=== PATIENT | female | born 1955 | race Caucasian/White ===

== ENCOUNTER 2017-07-26 20:58 | Emergency (ER) | payer BC, SELFPAY ==
[2017-07-26 21:00] VITALS: BP 138/87; PULSE 71; RESP 15; TEMP 36.6; BMI 22.1
--- NOTE | 2017-07-26 21:38 | ED.VISSUMM ---
- ER Visit Summary Date of Service: 07/26/17 Chief Complaint: Eye floaters History of Present Illness: The patient is a 62 F who states that 3 days ago she was at work on the computer when she had a sudden explosion of floaters in the right eye. She denies any loss of vision. States the right eye is been somewhat blurry. She wears reading glasses and she had Lasix surgery just over 10 years ago. 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 Physical Examination: aFebrile vital signs are stable Her motions are intact. The cornea appears normal. Conjunctiva and sclera are normal. Anterior chamber is deep and quiet. The eyes were dilated with Cyclogyl and she had a normal funduscopic exam I do not see evidence of retinal detachment. 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 Return if worsening. Impression: 1. Right eye floaters This note was generated with [employer] dictation software. It may contain incorrect words, spelling, and punctuation that were not noted in review of the chart prior to signing ED Disposition - Plan for ED Patient: Disposition: Home or Assisted Living Chief Complaint: Eye Problem Instructions: What Are Flashes and Floaters?, Treating Flashes and Floaters Referrals: [facility] Doctor,Out of [Primary Care Provider] - Additional Instructions: Please call your eye doctor in the morning for a complete eye examination.
[2017-07-26] MEDS: Cyclopentolate 1% 2 ML Bottle 2 DRP RIGHT EYE (22:26)
[2017-07-26 23:07] VITALS: BP 134/62; PULSE 79; RESP 20; O2SAT 96
== END 2017-07-26 23:07 | disposition home or self-care (01) ==
PROVIDERS: Emergency Provider Emergency Medicine
DX: H43.391 Other vitreous opacities, right eye (principal)
CPT/HCPCS: 99283

== ENCOUNTER → 2021-05-07 | Outpatient (CLI) | payer MEDICARE, SELFPAY ==
[2021-05-12 16:20] LABS: HPV Reflexed? NOT INDICATED
== END | disposition home or self-care (01) ==
LOC: LABSPEC 16:30
PROVIDERS: Visit Provider Family Medicine
DX: Z12.4 Encounter for screening for malignant neoplasm of cervix (principal)
CPT/HCPCS: 88175; G0145

== ENCOUNTER → 2021-05-12 12:48 | Outpatient (CLI) | payer MEDICARE, BC, SELFPAY ==
--- NOTE | 2021-05-12 13:01 | BD_ITS ---
STUDY: DUAL ENERGY X-RAY ABSORPTIOMETRY / DXA REASON FOR EXAM: Female, 65 years old. M85.89. Patient is postmenopausal. TECHNIQUE: Bone Mineral Density (BMD) measurements of lumbar spine and bilateral hips were obtained. COMPARISON: None. FINDINGS: Lumbar Spine (L1-L4): g/cm2 (0.852) / T-score (-1.8) / Z-score (0.1) Findings are suggestive of osteopenia with a moderate fracture risk. Left Femur Total: g/cm2 (0.745) / T-score (-1.6) / Z-score (-0.3) Left Femoral Neck: g/cm2 (0.574) / T-score (-2.5) / Z-score (-0.9) Right Femur Total: g/cm2 (0.791) / T-score (-1.2) / Z-score (0.1) Right Femoral Neck: g/cm2 (0.637) / T-score (-1.9) / Z-score (-0.3) BD/Dexa Bone Density Study IMPRESSION: The patient is considered osteopenic as outlined below according to World Jeremie Organization (WHO) criteria with a high fracture risk. Reference Information: The T-score is the number of standard deviations above or below the standard which is normal for young adults at their peak bone mineral density. The World Health Organization (WHO) interprets the T-scores as follows: Above -1 Normal bone density Between -1 and -2.5 Osteopenia Equal to / or below -2.5 Osteoporosis As a practical clinical guideline, osteopenia may be graded as follows: Mild -1 through -1.5 Moderate -1.6 through -2.0 Severe -2.1 through -2.4 The Z-score is the number of standard deviations above or below age-matched controls. A Z-score of less than -1.5 would be considered abnormal. References: 1. NIH Osteoporosis and Related Bone Diseases www osteo.org 2. International Society for Clinical Densitometry www iscd.org 3. National Osteoporosis Foundation www nof.org Electronically Signed: Andre Chavez MD at 14:24 EST , Service support ,
== END ==
PROVIDERS: Visit Provider Family Medicine
DX: M85.80 Other specified disorders of bone density and structure, unspecified site (principal); Z78.0 Asymptomatic menopausal state
CPT/HCPCS: 77080

== ENCOUNTER → 2022-08-04 | Outpatient (CLI) | payer MEDICARE, BC, SELFPAY ==
[2022-08-04 12:34] LABS: Erythrocyte Sedimentation Rate < 1 mm/hr (0-30)
[2022-08-04 12:37] LABS: Absolute Neutrophil Count 3.9 X10^3/uL (2.0-7.7); Basophil# 0.09 X10^3/uL; Basophil% 1.2 % (0-1); Eosinophil# 0.36 X10^3/uL; Eosinophils% 4.7 % (0-5); Hematocrit 44.6 % (37-47); Hemoglobin 14.7 g/dL (12.0-15.0); Lymphocyte % 35.3 % (19-41); Mean Corpuscular Hgb 30.4 pg (27.0-32.0); Mean Corpuscular Volume 92.3 fL (81-99); Mean Platelet Vol. 11.4 fl (6.2-12.0); Monocyte# 0.61 X10^3/uL; NRBC Flagged by Analyzer 0 % (0-5); Neutrophil # 3.86 X10^3/uL (2.7-7.7); Neutrophil % 50.4 % (47-70); Platelet Count 312 K/mm3 (150-450); RBC Distribution Width CV 13.4 % (11.6-14.6); RBC Distribution Width SD 45.2 fl (35.1-43.9); Red Blood Count 4.83 M/mm3 (4.2-5.4); White Blood Count 7.7 K/mm3 (4.4-11.0)
[2022-08-04 13:01] LABS: ALB/GLOB Ratio 1.3 RATIO (0.9-2.4); AST(SGOT) 14 U/L (15-37); Alanine Aminotransfer ALT/SGPT 31 U/L (13-56); Alkaline Phosphatase 77 U/L (45-117); Anion Gap 6 (5-15); BUN 21 mg/dL (7-18); BUN/Creat Ratio 24.3 RATIO (10-20); CRP < 2.90 mg/L (0.0-3.0); Calcium,Total 9.3 mg/dL (8.5-10.1); Chloride 107 mmol/L (98-107); Creatinine, Serum 0.86 mg/dL (0.55-1.02); EST Glomerular Filtration Rate 69 mL/min (>60); Est Glom Filt Rate - Afr Amer 84 mL/min (>60); Globulin 3.1 g/dL (2.2-4.2); Glucose 97 mg/dL (74-106); Potassium 4.4 mmol/L (3.5-5.1); Protein, Total 7.1 g/dL (6.4-8.2); Sodium Level 141 mmol/L (136-145)
[2022-08-05 15:26] LABS: ANTINUCLEAR ANTIBODIES DIRECT Negative (Negative)
== END | disposition home or self-care (01) ==
PROVIDERS: PCP Family Medicine; Visit Provider Family Medicine
DX: R21 Rash and other nonspecific skin eruption (principal); R00.0 Tachycardia, unspecified
CPT/HCPCS: 36415; 80053; 84443; 85025; 85652; 86038; 86140; 86225; 86235

== ENCOUNTER → 2024-07-22 | Outpatient (CLI) | payer MEDICARE, OTHER, SELFPAY ==
[2024-07-22 12:49] LABS: Absolute Lymphocyte Count 1.62 X10^3/uL (0.83-4.51); Absolute Neutrophil Count 3.4 X10^3/uL (2.0-7.7); Basophil# 0.07 X10^3/uL; Basophil% 1.3 % (0-1); Eosinophils% 1.8 % (0-5); Hematocrit 42.3 % (37-47); Hemoglobin 13.6 g/dL (12.0-15.0); Lymphocyte # 1.62 X10^3/ul (0.83-4.51); Mean Corp Hgb Conc 32.2 g/dL (32-36); Mean Corpuscular Hgb 28.9 pg (27.0-32.0); Mean Corpuscular Volume 89.8 fL (81-99); Mean Platelet Vol. 11.9 fl (6.2-12.0); Monocyte# 0.35 X10^3/uL; Monocyte% 6.3 % (0-10); NRBC Flagged by Analyzer 0 % (0-5); Neutrophil # 3.44 X10^3/uL (2.7-7.7); Neutrophil % 61.4 % (47-70); Platelet Count 262 K/mm3 (150-450); RBC Distribution Width CV 12.5 % (11.6-14.6); RBC Distribution Width SD 41.2 fl (35.1-43.9); Red Blood Count 4.71 M/mm3 (4.2-5.4); White Blood Count 5.6 K/mm3 (4.4-11.0)
[2024-07-22 13:24] LABS: Vitamin D,25 Hydroxy 35.6 ng/mL
[2024-07-22 20:23] LABS: ALB/GLOB Ratio 1.2 RATIO (0.9-2.4); AST(SGOT) 16 U/L (15-37); Alanine Aminotransfer ALT/SGPT 30 U/L (13-56); Albumin, Serum 3.8 g/dL (3.2-5.0); Alkaline Phosphatase 81 U/L (45-117); Anion Gap 7 (5-15); BUN 20 mg/dL (7-18); BUN/Creat Ratio 26.7 RATIO (10-20); Calcium,Total 9.7 mg/dL (8.5-10.1); Chloride 108 mmol/L (98-107); Cholesterol 227 mg/dL (200); Creatinine, Serum 0.75 mg/dL (0.55-1.02); EST Glomerular Filtration Rate 81 mL/min (>60); Est Glom Filt Rate - Afr Amer 98 mL/min (>60); Globulin 3.2 g/dL (2.2-4.2); Glucose 99 mg/dL (74-106); High Density Lipoprotein 50 mg/dL; Sodium Level 140 mmol/L (136-145); Triglycerides 181 mg/dL; Very Low Density Lipoprotein 36 mg/dL (5-40)
== END | disposition home or self-care (01) ==
LOC: BFHLAB 09:16
PROVIDERS: PCP Family Medicine; Visit Provider Family Medicine
DX: R79.9 Abnormal finding of blood chemistry, unspecified (principal); E78.5 Hyperlipidemia, unspecified; M85.80 Other specified disorders of bone density and structure, unspecified site; Z51.81 Encounter for therapeutic drug level monitoring
CPT/HCPCS: 36415; 80053; 80061; 82306; 85025

== ENCOUNTER → 2025-01-02 | Outpatient (CLI) | payer MEDICARE, SELFPAY ==
--- NOTE | 2025-01-02 09:57 | US_ITS ---
PROCEDURE: HEAD/NECK SOFT TISSUE 01/02/2025 REASON FOR EXAM: Palpable lump in the lower right side of the neck. TECHNIQUE: HEAD/NECK SOFT TISSUE COMPARISON: None FINDINGS: The palpable abnormality corresponds to a 3 cm x 1.8 cm 1.4 cm complex nodule of the right lobe of the thyroid with increased vascularity. This is a TI-RADS category 4. Biopsy recommended. US/Head/Neck Soft Tissue IMPRESSION: The palpable abnormality in the lower right cervical region corresponds to a 3 cm x 1.8 cm 1.4 cm complex nodule of the right lobe of the thyroid gland. Increased vascularity seen. Biopsy recommended. Reading Location: [facility]
== END | disposition home or self-care (01) ==
PROVIDERS: PCP Family Medicine; Referring Provider Family Medicine; Visit Provider Family Medicine
DX: R59.0 Localized enlarged lymph nodes (principal)
CPT/HCPCS: 76536

== ENCOUNTER → 2025-01-31 | Outpatient (CLI) | payer MEDICARE, SELFPAY ==
--- NOTE | 2025-01-31 09:30 | CYSPIN_PTH ---
PATIENT: MEENA REEVES LOC: [facility] U#:[id number] AGE/SX: 69/F ROOM: RE01/31/[address]: Dr. Gordon Torres MD : 1955 BED: DIS: 01/31/2025 SPEC #: [id number] RECD: 01/31/25 10:21 STATUS: BONITA SOPHIA #: [id number] MIL: 01/31/25 09:[address]: Gordon Torres DEPT: CYTOLOGY RECD BY: Suraj Solis ENTERED: 01/31/25 11:28 SP TYPE: CYSPIN FL OTHR DR: Dr. Catrachito Hollins DO Tissues: A - Thyroid gland, NOS Procedures: Pap Stain (control) Special Stain Group II Diff Quik Stain (control) Cytospin Fluid Cytology Other HEADER OPERATION: Fine needle aspiration of right thyroid nodule PRE-OP DIAGNOSIS: Right thyroid nodule TISSUE SUBMITTED: A- Right thyroid nodule DIAGNOSIS CYTOLOGY A. Right thyroid nodule, FNA (smear x6, cytospin): * Atypical cells of undetermined significance (TBS III). * Afirma testing will be submitted. CYTOLOGY STUDY Slides are reviewed. CYTOLOGY GROSS A. Received is 30 ml of [id number] cytolyt with particles and 6 smears labeled with the patient's name and and designated per the requisition as Right thyroid nodule. Submitted for cytology and cytospin. 01/31/2025 CPT: 57491 ADDENDUM ADDENDUM ADDENDUM ADDENDUM ADDENDUM ADDENDUM ADDENDUM ADDENDUM 03/03/2025 09:20 ADDENDUM 03/03/2025 09:20 ADDENDUM 03/03/2025 09:20 ADDENDUM 03/03/2025 09:20 ADDENDUM 03/03/2025 09:20 ADDENDUM 04/02/2025 12:26 AFIRMA RESULTS REPORT - SAMPLE A RESULTS INTERPRETATION: No result for Afirma GSC due to low technical solutions engineer follicular content. Low follicular content is found in samples primarily composed of lymphocytes, macrophages or blood. Please see complete report in e-chart or EMR This addendum is added to incorporate an outside pathology consultation report. The case was examined at [facility] by Dr. Natarajan ([id number]) and the following diagnosis was rendered. A. Thyroid, right, fine needle aspiration: Atypia of undetermined significance (see comment). DIAGNOSIS COMMENT: A. The specimen is hypocellular, and the follicular cells are focally entrapped within blood clots, hindering proper architectural evaluation. Focal cytological atypia is identified, including nuclear crowding and overlapping, slightly enlarged and irregular nuclei, pale chromatin, and occasional nuclear grooves. The findings support the above interpretation. Selected slides from this case were also reviewed by Dr. Olivarez and she concurred. Please see complete above mentioned consultation report in EMR
== END | disposition home or self-care (01) ==
LOC: LABSPEC 10:30
PROVIDERS: PCP Family Medicine; Referring Provider Surgery; Visit Provider Surgery
DX: E04.1 Nontoxic single thyroid nodule (principal)
CPT/HCPCS: 88108; 88161; 88313

== ENCOUNTER → 2025-02-04 | Outpatient (CLI) | payer MEDICARE, SELFPAY ==
[2025-02-04 13:46] LABS: Free T3 3.1 pg/mL (2.18-3.98)
== END | disposition home or self-care (01) ==
LOC: BFHLAB 09:55
PROVIDERS: Surgery; PCP Family Medicine; Referring Provider Family Medicine; Visit Provider Family Medicine
DX: E04.9 Nontoxic goiter, unspecified (principal)
CPT/HCPCS: 84439; 84443; 84481